=== PATIENT | male | born 1990 | race Caucasian/White ===

== ENCOUNTER 2022-07-30 07:29 | Emergency (ER) | payer OTHER, BC, SELFPAY ==
[2022-07-30] VITALS (8 sets, daily range): BP systolic 136–138; BP diastolic 74–86; PULSE 59–65; RESP 18; O2SAT 97–98
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
[2022-07-30] MEDS: IBUPROFEN 600 MG TABLET PO (08:07)
== END 2022-07-30 08:41 | disposition home or self-care (01) ==
LOC: ANHED 08:20
PROVIDERS: Emergency Provider Emergency Medicine
DX: S00.83XA Contusion of other part of head, initial encounter (principal); S80.12XA Contusion of left lower leg, initial encounter; V43.52XA Car driver injured in collision with other type car in traffic accident, initial encounter
CPT/HCPCS: 70450; 73590; 99284; A9270